=== PATIENT | female | born 1990 | race Caucasian/White ===

== ENCOUNTER 2020-10-25 22:04 | Day surgery (SDC) | payer OTHER ==
[2020-10-25 23:09] VITALS: BMI 23.2
[2020-10-25 23:18] LABS: Amnisure Test No Membranes Rupture (No Rupture)
[2020-10-25] MEDS ORDERED: Fluconazole 100 MG TAB PO SCH (23:59)
[2020-10-26] MEDS ORDERED: Fluconazole 100 MG TAB PO SCH (21:00)
== END 2020-10-26 00:15 | disposition home or self-care (01) ==
LOC: CSHLD/OP 22:04
PROVIDERS: ATTEND Obstetrics & Gynecology
DX: O99.891 Other specified diseases and conditions complicating pregnancy (principal); N89.8 Other specified noninflammatory disorders of vagina; O99.513 Diseases of the respiratory system complicating pregnancy, third trimester; J45.909 Unspecified asthma, uncomplicated; Z3A.39 39 weeks gestation of pregnancy
CPT/HCPCS: 84112; 87480; 87510; 87660; 99284

== ENCOUNTER 2020-10-31 11:29 | Inpatient (IN) | payer OTHER ==
[2020-10-31] MEDS ORDERED: HYDROcodone/Acetaminophen 5/325 mg Tablet PO PRN ×4 (12:15→18:49)
[2020-10-31] MEDS ORDERED: Butorphanol Tartrate 1 MG/ML VIAL SLOW IVP PRN (12:15)
[2020-10-31] MEDS ORDERED: hydrALAZINE 20 MG/ML VIAL SLOW IVP PRN ×2 (12:15→18:49)
[2020-10-31] MEDS ORDERED: Docusate 100 MG CAP PO PRN (12:15)
[2020-10-31] MEDS ORDERED: Ibuprofen 800 MG TAB PO PRN (12:15)
[2020-10-31] MEDS ORDERED: Promethazine HCl 25 MG/ML VIAL IM PRN ×3 (12:15→15:08)
[2020-10-31] MEDS ORDERED: Ondansetron PF 4 MG/2 ML Vial IVP PRN ×4 (12:15→18:49)
[2020-10-31] MEDS ORDERED: Lidocaine 1% (PF) 30 ML VIAL SC PRN (12:15)
[2020-10-31] MEDS ORDERED: NS w/ Oxytocin 30 units 500 ML IV PRN (12:25)
[2020-10-31 12:29] VITALS: BMI 23.7
[2020-10-31] MEDS ORDERED: NS w/ Oxytocin 30 units 500 ML IVPB SCH ×2 (12:30)
[2020-10-31] MEDS: Lactated Ringer's 1,000 ML IV SCH ×2 (13:00→13:44)
[2020-10-31 13:30] LABS: Hemoglobin 10.3 g/dL (12.0-15.5); Mean Corpuscular HGB CONC 32.5 g/dL (32.0-36.0); Mean Corpuscular Hemoglobin 29.7 pg (27.0-33.0); Mean Corpuscular Volume 91.4 fl (81.6-98.3); Mean Platelet Volume 10.8 fl (7.4-10.4); Platelet Count 170 10x3/uL (150-450); RBC Distribution Width 13.6 % (11.5-14.5); Red Blood Cell (RBC) Count 3.47 10x6/uL (3.90-5.03); White Blood Cell (WBC) Count 7.5 10x3/uL (3.5-10.5)
[2020-10-31] MEDS ORDERED: Fentanyl 4 mcg/Bup 0.1% Cadd 100 ML ONE (13:39)
[2020-10-31 14:07] LABS: Hep B Surf Ag Non-Reactive S/CO (NonReactive); Syphilis Antibody Nonreactive (Nonreactive); Syphilis Antibody Index 0.05 S/CO (<1.00 Non-Reactive)
[2020-10-31 14:10] LABS: HBSAg Index 0.15 S/CO (0-0.99)
[2020-10-31] MEDS ORDERED: Eucerin (Mineral Oil/Petrolatum,White) 30 gm Jar TOP PRN ×2 (15:02→15:08)
[2020-10-31] MEDS ORDERED: Acetaminophen 325 MG TAB PO PRN ×2 (15:02→15:08)
[2020-10-31] MEDS ORDERED: Naloxone HCl 0.4 mg/ml Vial IVP PRN ×4 (15:02→15:08)
[2020-10-31] MEDS ORDERED: ePHEDrine 50 MG/ML VIAL SLOW IVP PRN ×2 (15:02→15:08)
[2020-10-31] MEDS ORDERED: diphenhydrAMINE 50 MG/ML VIAL IVP PRN ×2 (15:02→15:08)
[2020-10-31] MEDS ORDERED: Lactated Ringer's 500 ML IV PRN ×2 (15:02→15:08)
[2020-10-31] MEDS ORDERED: Communication Order-Pharmacy FS SCH ×2 (15:15)
[2020-10-31] MEDS ORDERED: Fentanyl 4 mcg/Bupivacaine 0.1% Cassette 100 ML EPIDURAL SCH (15:15)
[2020-10-31] MEDS ORDERED: diphenhydrAMINE 25 MG CAP PO PRN (18:49)
[2020-10-31] MEDS ORDERED: Milk Of Magnesia 30 ML UDCUP PO PRN (18:49)
[2020-10-31] MEDS ORDERED: Bisacodyl 10 MG SUPP PR PRN (18:49)
[2020-10-31] MEDS ORDERED: Lanolin Ointment 7 GM TUBE TOP PRN (18:49)
[2020-10-31] MEDS ORDERED: Adacel (T-DAP) 0.5 ML SYRINGE IM ONE (18:49)
[2020-10-31] MEDS ORDERED: Benzocaine-Menthol 82.5 ML CAN TOP PRN (18:49)
[2020-10-31] MEDS ORDERED: Preparation H Ointment 28 GM TUBE PR PRN (18:49)
[2020-10-31] MEDS ORDERED: NS w/ Oxytocin 30 units 500 ML IV SCH (19:15)
[2020-10-31] MEDS: Ibuprofen 800 MG TAB PO SCH (19:43)
[2020-10-31] MEDS ORDERED: Bupivacaine PF 0.5% 30 ML VIAL ONE (19:48)
[2020-11-01 01:49] LABS: SARS-CoV-2 PCR by NAA Not Detected (NotDetected)
[2020-11-01] MEDS: Ibuprofen 800 MG TAB PO SCH ×2 (05:56→14:12)
[2020-11-01] MEDS: Docusate Calcium (SURFAK) 240 MG CAP PO SCH ×2 (05:57→09:09)
[2020-11-01] MEDS ORDERED: Prenatal Vitamin 1 TAB PO SCH (09:00)
[2020-11-01] MEDS: Ferrous Sulfate 325 MG TAB PO SCH ×2 (09:09→15:24)
[2020-11-01 17:12] VITALS: BP 107/56; TEMP 98.6
== END 2020-11-01 20:20 | disposition home or self-care (01) | DRG 807 ==
LOC: CSHLD 11:29 → CSHPP 21:00
PROVIDERS: ADMIT Obstetrics & Gynecology; ATTEND Obstetrics & Gynecology
PROC: 10E0XZZ Delivery of Products of Conception, External Approach (ICD-10-PCS; principal; 2020-10-31)
DX: O41.03X0 Oligohydramnios, third trimester, not applicable or unspecified (principal); Z37.0 Single live birth; Z3A.40 40 weeks gestation of pregnancy; Z20.822 Contact with and (suspected) exposure to COVID-19
CPT/HCPCS: 36415; 51702; 85027; 86780; 86850; 86900; 86901; 87340; 87635; J2590; S0020; U0003; U0005

== ENCOUNTER 2020-12-09 17:10 | Outpatient (CLI) | payer OTHER ==
[2020-12-10 02:14] LABS: SARS-CoV-2 PCR by NAA Not Detected (NotDetected)
== END 2020-12-09 17:11 | disposition home or self-care (01) ==
LOC: CSHLAB 17:10
PROVIDERS: ATTEND Orthopaedic Surgery
DX: Z20.822 Contact with and (suspected) exposure to COVID-19 (principal)
CPT/HCPCS: 87635; U0003; U0005

== ENCOUNTER 2020-12-11 05:59 | Day surgery (SDC) | payer OTHER ==
[2020-12-11] MEDS ORDERED: PROPOFOL 20 ML ONE ×2 (06:13→07:26)
[2020-12-11] MEDS ORDERED: Midazolam HCl 2 mg/2 ml Vial ONE (06:13)
[2020-12-11] MEDS ORDERED: Fentanyl 100 MCG/2 ML VIAL ONE (06:13)
[2020-12-11] MEDS ORDERED: Ondansetron PF 4 MG/2 ML Vial ONE (06:14)
[2020-12-11] MEDS ORDERED: Dexamethasone 20 MG/5 ML VIAL ONE (06:14)
[2020-12-11] MEDS ORDERED: Lidocaine 1% PF 5 ML VIAL ONE ×2 (06:14→06:28)
[2020-12-11] MEDS ORDERED: Ketorolac Tromethamine 15 MG/ML VIAL ONE (06:14)
[2020-12-11] MEDS ORDERED: Bupivacaine PF 0.5% 30 ML VIAL ONE (06:28)
[2020-12-11] MEDS ORDERED: Lidocaine 1% MPF 2 ML VIAL ONE (06:39)
[2020-12-11] MEDS ORDERED: Neomycin-Polymyxin 1 ML AMP ONE (06:41)
[2020-12-11] MEDS ORDERED: Scopolamine 1.5 mg/72 hour Patch ONE (07:02)
[2020-12-11] MEDS ORDERED: Famotidine/PF 20 mg/2ml Vial ONE (07:02)
[2020-12-11] MEDS ORDERED: diphenhydrAMINE 50 MG/ML VIAL ONE (07:40)
[2020-12-11] MEDS ORDERED: PHENYLEPHRINE-NS 100 MCG/ML 10 ML SYRINGE ONE (07:45)
[2020-12-11] MEDS ORDERED: ePHEDrine 50 MG/ML VIAL ONE (08:16)
== END 2020-12-11 11:30 | disposition home or self-care (01) ==
LOC: CSHSDC 05:59
PROVIDERS: ATTEND Orthopaedic Surgery
PROC: 0PSF04Z Reposition Right Humeral Shaft with Internal Fixation Device, Open Approach (ICD-10-PCS; principal; 2020-12-11)
PROC: 3E0T3BZ Introduction of Anesthetic Agent into Peripheral Nerves and Plexi, Percutaneous Approach (ICD-10-PCS; 2020-12-11)
DX: S42.431A Displaced fracture (avulsion) of lateral epicondyle of right humerus, initial encounter for closed fracture (principal); W01.0XXA Fall on same level from slipping, tripping and stumbling without subsequent striking against object, initial encounter; Y93.K1 Activity, walking an animal
CPT/HCPCS: 76000; C1713; C1769; J0690; J1100; J1200; J1885; J2250; J2405; J2704; J3010; J3490; S0020; S0028